=== PATIENT | male | born 1955 | race Caucasian/White ===

== ENCOUNTER 2018-02-23 13:28 | Inpatient (IN) | payer BC, OTHER ==
[~2018-02-23] VITALS: Ht 182.9 cm; Wt 117.9 kg
--- NOTE | 2018-02-23 16:45 | NUR ---
PRE ADMISSION 62 year old male presented at intake office, from [place]. Patients bp: 146/96 P: 117 t: 98.2, r: 22 o2 sat: 95% room air. Patient denies any food or drug allergies. Reports he does not have a primary care physician. Patient reports substance use/history of: etoh. reports has been consuming alcohol for 45 years, most recently reports has been consuming 1/2 gallon of vodka on a daily basis for 6 or 7 months. reports has been to 20+ treatment centers, most recently was at [facility] in [place] for 4 days, patient unable to recall exact dates, but reports he was discharged four days ago. reports that as soon as he arrived at his house, he began drinking. Patient reports he last consumed approximately half a gallon of vodka prior to coming to admission including 6 vodka drink he had on the plane at approximately 1300. patient currently appears, flushed, facial redness, sweating profusely, tremulous, irritable, anxious and agitated. has flat affect, poor eye contact, and noted disheveled. Patient brought home medications with him, but reports the last time he took his home medications was one week ago. Reports past medical history of: DM type 2, HTN, sleep apnea, anxiety, depression and bipolar d/o. Patient reports history of seizures, reports he has had a total of 16 seizures due to withdrawal, last seizure was 3 months ago. Reports family history of substance abuse: father at the age of 55 due to alcohol abuse. Patient seen by Dr. teague at intake office.
[2018-02-23 17:02] VITALS: BP 146/96
[2018-02-23] MEDS ORDERED: THIAMINE HCL 200 MG/2 ML VIAL IM ONE (17:15)
[2018-02-23] MEDS ORDERED: ONDANSETRON 4 MG/2 ML VIAL IV PRN (17:15)
[2018-02-23] MEDS ORDERED: ONDANSETRON ODT 4 MG TAB.RAPDIS SL PRN (17:15)
[2018-02-23] MEDS ORDERED: NICOTINE POLACRILEX 4 MG GUM-PK OF TEN BC PRN (17:15)
[2018-02-23] MEDS ORDERED: LORAZEPAM 2 MG/1 ML VIAL IM PRN (17:15)
[2018-02-23] MEDS ORDERED: MAGNESIUM HYDROXIDE 30 ML LIQUID UDC PO PRN (17:15)
[2018-02-23] MEDS ORDERED: LOPERAMIDE HCL 2 MG CAPSULE PO PRN ×2 (17:15)
[2018-02-23] MEDS ORDERED: LORAZEPAM 1 MG TABLET PO PRN (17:15)
[2018-02-23] MEDS ORDERED: ACETAMINOPHEN 325 MG TABLET PO PRN (17:15)
[2018-02-23] MEDS ORDERED: IV NS 1000 ML 1,000 ML IV PRN (17:15)
[2018-02-23] MEDS ORDERED: MIRALAX 17 GM POWD.PACK PO PRN (17:15)
[2018-02-23] MEDS ORDERED: NICOTINE 14 MG/24HR PATCH TD PRN (17:15)
[2018-02-23] MEDS ORDERED: ATOR40TA PO (17:34)
[2018-02-23] MEDS ORDERED: METF500T6 PO (17:34)
[2018-02-23] MEDS ORDERED: CITA40TA11 PO (17:34)
[2018-02-23] MEDS ORDERED: ASPI81TA31 PO (17:34)
[2018-02-23] MEDS ORDERED: LISI-603 PO (17:34)
[2018-02-23] MEDS ORDERED: MIRT15TA7 PO (17:34)
[2018-02-23] MEDS ORDERED: THIA100T70 PO (17:34)
[2018-02-23] MEDS ORDERED: METO25TA6 PO (17:34)
[2018-02-23] MEDS ORDERED: HYDR-3026 PO (17:34)
[2018-02-23] MEDS ORDERED: PANT40TA4 PO (17:34)
[2018-02-23] MEDS ORDERED: LIDO30AD10 TD (17:34)
[2018-02-23 17:47] LABS: *AMPHETAMINE, URINE NEGATIVE (NEGATIVE); *BARBITURATE, URINE NEGATIVE (NEGATIVE); *CANNABINOID, URINE NEGATIVE (NEGATIVE); *COCCAINE, URINE NEGATIVE (NEGATIVE); *OPIATE, URINE NEGATIVE (NEGATIVE); *PHENCYCLIDINE SCREEN,URINE NEGATIVE (NEGATIVE)
[2018-02-23] MEDS: LORAZEPAM 1 MG TABLET PO SCH ×2 (18:07→21:02)
--- NOTE | 2018-02-23 18:55 | NUR ---
ADMISSION Patient arrived on the unit 1700 patient noted with unsteady gait, brought on unit on a wheelchair. Patients body search completed by male PRODUCT ARCHITECT, no contraband was found. Patients body search completed by male nurse, skin noted intact, no breakdown or bruising noted. Patient was noted with bilateral hand 2+ pitting edema and bilateral foot 2+ pitting edema, per patient his hands and feet swell when he is drinking alcohol. Patient is 6 feet tall, and weighs 260 lbs. Patient was oriented to room and to unit, education regarding call light use was provided with good verbal understanding. Patient reports NKA. Patient reports he does not have a primary care physician. Patient reports substance use of: etoh. 1.Etoh- has been consuming alcohol for 45 years, recently has been consuming gallon of vodka on a daily basis for months patient unable to recall exact amount of months. Patient reports his last drink was all night long, consuming gallon of vodka. Patient reports that upon coming here on the plane consumed 6 vodka drinks, with last drink at approximately 1300. Patient reports he has been to 20+ treatment centers, unable to recall the names of them, but most recently was at [facility] in [place] last week, reports he was there for four days, upon discharging from there to home, he relapsed and continued drinking. Patient reports past medical history of: DM type 2, HTN, sleep apnea, anxiety, depression, bipolar d/o, CAD, dyslipidemia and GERD. Patient reports surgical history of: coronary artery bypass graft, and colon polypectomy. Patient is unable to recall when he was diagnosed or when surgical procedures were done. Patient reports history of 16 seizures all due to withdrawal, last seizure was 3 months ago due to withdrawal. Patient reports family history of substance abuse: father, reports from alcohol abuse at the age of 55. Patient reports he lives alone, in [place]. 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 Patient also reported that 3 months ago, he attempted to commit suicide by taking over the counter sleeping aids, was found by a neighbor and taken to hospital, currently patient is denying any suicidal or homicidal ideations, reports I just want to get well, I dont want to that way patient reports he does not know how to cope with negative emotions, reports that 12 years ago his partner committed suicide and since then he is unable to cope and cannot stop drinking. Reports his longest period of sobriety was for 18 months, 5-6 years ago, but then relapsed. Patient reports that he wants his life back, and he no longer wants to live this way, reports he wants to live and not . Patient respirations are even and unlabored, lungs clear upon auscultation, patients abdomen is distended and soft, bowel sounds heard in all quadrants. Patient noted disheveled, poor eye contact, flat affect, depressed and anxious mood. Noted irritable, and agitated. Patient presented with: tremors, sweats, anxiety, agitation, fidgety, restlessness, reports moderate itchiness to bilateral arms, reports he is currently hearing his name being called (auditory hallucinations), moderate headache, disoriented to place and time, admitting ciwa score of: 33, Dr. Reynoso aware. Patient reports that when he is detoxing he also beings to see mice in the room currently not experiencing any visual hallucination. Patient placed with 1: 1 sitter for safety precautions. Seizure precautions in place and observed at all time. Safety measures in place. Call light with in reach. Was administered scheduled 2mg Ativan PO as ordered and Vitamin b1 injection, well tolerated, will continue to monitor closely. Safety measures are in place. Endorsed patient to night worker nurse, all pertinent information was discussed. Patient scheduled to begin IVF as ordered, endorsed to night worker nurse.
[2018-02-23 20:00] VITALS: BP 141/77
--- NOTE | 2018-02-23 20:00 | NUR ---
Start of Shift Pt asleep on bed, arousable AAOx3 and noted with intermittent awareness of the place where he is at. Pt re-oriented to place. Pt noted to be anxious, appears flushed and with sweating on the forehead. With non-pitting edema on BUE and BLE. Pt noted to be depressed and melancholic. Pt appears disheveld and unkempt. Pt also noted to have dark undereye circles. With unsteady gait, on 1:1 for safety. With IV access on the left AC #22, patent and intact, saline flush done, no resistance noted. With IVF infusing well. Fall, seizure, universal and safety prec in place. Call light within reach. Latest CIWA=20. Will continue to monitor.
[2018-02-23] MEDS: METOPROLOL 25 MG PO SCH (21:05)
[2018-02-23] MEDS: MIRTAZAPINE 15 MG TABLET PO SCH (21:14)
[2018-02-23] MEDS: MAG HYDROX/AL HYDROX/SIMETH 30 ML LIQUID UDC PO PRN (21:14)
--- NOTE | 2018-02-23 21:15 | NUR ---
RN note PRN Maalox Pt c/o heartburn. Administered Maalox 30 ml PRN as ordered. Will reassess.
[2018-02-23 21:28] LABS: BASOPHILS % (AUTO) 0.6 % (0.0-2.0); EOSINOPHILS # (AUTO) 0.2 K/uL (0.0-0.7); EOSINOPHILS % (AUTO) 3.2 % (0.0-7.0); HEMATOCRIT 38.7 % (36.7-47.1); HEMOGLOBIN 13.5 g/dL (12.5-16.3); LYMPHOCYTES # (AUTO) 2.9 K/uL (20.0-40.0); LYMPHOCYTES % (AUTO) 39.4 % (20.5-51.5); MEAN CORPUSCULAR HEMOGLOBIN 32.6 uug (23.8-33.4); MEAN CORPUSCULAR HGB CONC 35 g/dL (32.5-36.3); MEAN CORPUSCULAR VOLUME 93.4 fL (73.0-96.2); MONOCYTES # (AUTO) 0.7 K/uL (2.0-10.0); MONOCYTES % (AUTO) 10.1 % (0.0-11.0); NEUTROPHILS # (AUTO) 3.4 K/uL (1.8-8.9); NEUTROPHILS % (AUTO) 46.7 % (38.5-71.5); PLATELET COUNT (AUTO) 249 K/uL (152-348); RED BLOOD CELL COUNT(AUTO) 4.14 MIL/uL (4.06-5.63); WHITE BLOOD COUNT (AUTO) 7.3 K/uL (3.6-10.2)
[2018-02-23 21:43] LABS: BILIRUBIN,TOTAL 0.3 mg/dL (0.2-1.0); MAGNESIUM 1.8 mg/dL (1.8-2.4); POTASSIUM 3.7 mmol/L (3.5-5.1); TOTAL PROTEIN, SERUM 6.6 g/dL (6.4-8.2)
--- NOTE | 2018-02-23 22:15 | NUR ---
RN note reassess Pt verbalized feeling relief from heartburn.
[2018-02-23 22:23] LABS: THYROID STIMULATING HORMONE 1.4 mIU/mL (0.358-3.740)
--- NOTE | 2018-02-23 22:30 | NUR ---
Reassessment of pain Reassessment deferred due to the px is asleep. We'll continue to monitor.
[2018-02-24] VITALS: BP 138/74
[2018-02-24 04:00] VITALS: BP 152/86
[2018-02-24] MEDS: LORAZEPAM 1 MG TABLET PO PRN ×2 (04:11→12:24)
--- NOTE | 2018-02-24 04:11 | NUR ---
RN note PRN Ativan Pt with CIWA=16, increasing anxiety, tremors, sweating and flushed skin. Administered Ativan 2 mg PO PRN as ordered. Will reassess.
--- NOTE | 2018-02-24 05:10 | NUR ---
RN note reassess Pt asleep on bed but arousable, with no facial grimacing noted. CIWA reassessed=12. Patient verbalized that anxiety has decreased.
--- NOTE | 2018-02-24 07:18 | NUR ---
End of Shift Patient continues to appear flushed and with sweating. Patient noted to be anxious. WIth IVF infusing well. On 1:1 as patient continued to ambulate with assistance, with unsteady gait. Patient appears disheveled, unkempt and odorous. Explained to patient the importance of taking a shower to maintain a good hygiene. Fall, seizure, universal and safety prec in place. Call light within reach. Latest CIWA=12, slept for 7 hours. Endorsed to AM shift nurse for continuity of care.
--- NOTE | 2018-02-24 07:30 | NUR ---
Start of shift Pt is 62 y/o male admitted to [facility] for medically supervised withdraw from ETOH. Pt on 5 day Ativan taper (day 2). A&O X4, resp even and unlabored. Presents with anxiety, flat affect and depressed mood. Pt has gross tremors, sweats, flushed face. C/O stomach cramps. Denies c/o pain, N/V/D. Last CIWA 12 at 1999. IV left AC, NS at 15 cc/hr. IV site patent. Pt 1:1 for safety and unsteady gait. Pt slept 7 hours. Encouraged Pt to attend group therapies to maintain sobriety and prevent relapse. NKA, FULL CODE. All safety measure in place; Fall and Seizure precautions. Bed lowest/locked position, side rails up X2, call light within reach. Will continue to monitor s/s of withdrawal.
[2018-02-24 08:00] VITALS: BP 158/87
[2018-02-24] MEDS: MULTIVITAMINS,THERAPEUTIC TABLET PO SCH (08:17)
[2018-02-24] MEDS: FOLIC ACID 1 MG TABLET PO SCH (08:17)
[2018-02-24] MEDS: THIAMINE HCL 100 MG TABLET PO SCH (08:17)
[2018-02-24] MEDS: IBUPROFEN 400 MG TABLET PO PRN ×2 (08:18→12:50)
[2018-02-24] MEDS: CITALOPRAM 20 MG TABLET PO SCH (08:18)
[2018-02-24] MEDS: ASPIRIN 81MG PO SCH (08:18)
[2018-02-24] MEDS: LORAZEPAM 1 MG TABLET PO SCH ×3 (08:18→20:09)
[2018-02-24] MEDS: METOPROLOL 25 MG PO SCH ×2 (08:18→20:10)
[2018-02-24] MEDS: LIDOCAINE PATCH 5% TOP SCH (08:19)
--- NOTE | 2018-02-24 08:26 | NUR ---
PRN Ibuprofen 400 mg POI for headache #4/10
[2018-02-24] MEDS ORDERED: DEXTROSE 50% 50 ML DISP.SYRIN IV PRN (08:45)
[2018-02-24] MEDS ORDERED: TUBERCULIN,PURIF.PROT.DERIV. 5 TU/0.1 ML TEST ID ONE (09:00)
--- NOTE | 2018-02-24 09:26 | NUR ---
REASSESS IBUPROFEN- PT REPORTS HEAD ACHE REMAINS AT #4/10. MEDICATION NOT EFFECTIVE.
[2018-02-24] MEDS: GABAPENTIN 300 MG CAPSULE PO SCH ×2 (09:33→20:09)
[2018-02-24 12:00] VITALS: BP_SYST 156; BP_SYST 160; BP_DIAS 89; BP_DIAS 97
[2018-02-24] MEDS: BLOOD SUGAR DIAGNOSTIC 1 EACH STRIP VI SCH ×3 (12:13→21:09)
[2018-02-24] MEDS: INSULIN REGULAR, HUMAN 300 UNIT/3 ML VIAL SQ PRN ×3 (12:20→21:13)
--- NOTE | 2018-02-24 12:25 | NUR ---
PRN ATIVAN 2 MG PO FOR CIWA 20.
[2018-02-24] MEDS: hydrALAZINE HCL 50 MG TABLET PO PRN (12:51)
--- NOTE | 2018-02-24 12:51 | NUR ---
PRN HYDRALAZINE 50 MG PO FOR BP 160/97 PRN IBUPROFEN 400 MG PO FOR BACK PAIN #8/10 PRN TYLENOL 650 MG PO FOR BACK PAIN #8/10
[2018-02-24] MEDS: DICYCLOMINE HCL 20 MG TABLET PO PRN ×2 (13:17→20:09)
--- NOTE | 2018-02-24 13:19 | NUR ---
PRN BENTYL 20 MG PO FOR STOMACH CRAMPS
--- NOTE | 2018-02-24 13:30 | NUR ---
[facility], PT REPORTS HE STILL FEELS ANXIOUS, IRRITABLE AND NOT MUCH DIFFERENT. GROSS TREMORS AND SWEATS PRESENT.
--- NOTE | 2018-02-24 13:51 | NUR ---
REASSESS HYDRALAZINE- BP REMAINS ELEVATED AT 150/92
--- NOTE | 2018-02-24 13:51 | NUR ---
REASSESS IBUPROFEN AND TYLENOL- PT REPORTS BACK PAIN REMAINS UNCHANGED, #7-/. PT HAS CHRONIC BACK PAIN R/T INJURY.
--- NOTE | 2018-02-24 14:19 | NUR ---
REASSESS BENTYL- PT C/O STOMACH CRAMPS, MEDICATION NOT EFFECTIVE.
[2018-02-24 16:00] VITALS: BP 135/99
--- NOTE | 2018-02-24 18:32 | NUR ---
End of shift Pt is 62 y/o male admitted to [facility] for medically supervised withdraw from ETOH. Pt on 5 day Ativan taper (day 2) and tolerating well. Presents with anxiety, flat affect and depressed mood. Pt has gross tremors, sweats, flushed face. PRN given today; Motrin, Ativan, Tylenol, Hydralazine, Bentyl. C/O stomach cramps not resolved by PRN. Pt has HTN, and elevated BP today minimally affected by PRN Hydralazine and scheduled Rx. Accu checks performed AC. Blood sugar elevated and treated with slide scale as ordered. At 1600 last CIWA 18. Saline lock left AC, patent. Encouraged Pt to attend group therapies to maintain sobriety and prevent relapse. Pt attended all group therapy meetings today. PO fluids 1900 ml, IV fluids 400 ml, voids x 2, no BM. NKA, FULL CODE. All safety measure in place; Fall and Seizure precautions. Bed lowest/locked position, side rails up X2, call light within reach. Will continue to monitor s/s of withdrawal. Endorsed to PM shift.
[2018-02-24 20:00] VITALS: BP 136/87
--- NOTE | 2018-02-24 20:00 | NUR ---
START OF SHIFT NOTE RECEIVED REPORT FROM DAY SHIFT NURSE. PATIENT IS A 62 YEAR OLD MALE ADMITTED FOR ETOH WITHDRAWAL. PATIENT IS ON 5 DAY ATIVAN TAPER. PATIENT WITH HISTORY OF DIABETES. LAST BLOOD SUGAR 168, 3 UNITS OF REGULAR INSULIN WAS GIVEN. PATIENT WAS ON 1:1 FOR UNSTEADY GAIT AND ON IV HYDRATION, DISCONTINUED TODAY. PATIENT WITH STEADY GAIT. PATIENT WAS GIVEN PRN ATIVAN, TYLENOL, MOTRIN X 2 AND BENTYL . PATIENT WITH HISTORY OF HYPERTENSION, BP ELEVATED, PRN HYDRALAZINE GIVEN. LAST CIWA 16. RECEIVED PATIENT IN THE ROOM. PATIENT ALERT AND ORIENTED X 4. PATIENT WITH FLAT AFFECT, FLUSHED, DISHEVELED, ODOROUS, ANXIOUS, HOT/COLD SWEATS, SENSITIVE TO LIGHT AND SOUNDS, ABDOMINAL CRAMPING, BILATERAL HAND TREMORS, PINS AND NEEDLES SENSATIONS AND HE STATES HE FEELS LIKE SOMETHING IS CRAWLING ON HIS SKIN. ENCOURAGE FLUIDS. SAFETY MEASURES IN PLACE. CALL LIGHT IN REACH. WILL CONTINUE TO MONITOR.
[2018-02-24] MEDS: MIRTAZAPINE 15 MG TABLET PO SCH (20:09)
--- NOTE | 2018-02-24 20:09 | NUR ---
PRN BENTYL ADMINISTRATION PATIENT C/O ABDOMINAL CRAMPING . WILL MONITOR FOR EFFECTIVENESS
--- NOTE | 2018-02-24 21:09 | NUR ---
PRN BENTYL ADMINISTRATION PATIENT STATES BENTYL HELPFUL AND EFFECTIVE.
[2018-02-25] VITALS (7 sets, daily range): BP systolic 122–172; BP diastolic 90–101
--- NOTE | 2018-02-25 | NUR ---
CIWA DEFERRED PATIENT SLEEPING . RESPIRATION EVEN AND UNLABORED. SAFETY MEASURES IN PLACE. CALL LIGHT IN REACH. WILL CONTINUE TO MONITOR
[2018-02-25] MEDS: diphenhydrAMINE 50 MG CAPSULE PO PRN (01:07)
[2018-02-25] MEDS: MAG HYDROX/AL HYDROX/SIMETH 30 ML LIQUID UDC PO PRN (01:07)
--- NOTE | 2018-02-25 01:07 | NUR ---
PRN MAALOX AND BENADRYL ADMINISTRATION PATIENT C/O HEARTBURN AND REQUESTS FOR SLEEP AID. WILL MONITOR FOR EFFECTIVENESS
--- NOTE | 2018-02-25 02:07 | NUR ---
PRN MAALOX AND BENADRYL RE-ASSESSMENT PATIENT SLEEPING . RESPIRATION EVEN AND UNLABORED. WILL CONTINUE TO MONITOR
[2018-02-25] MEDS: LORAZEPAM 1 MG TABLET PO PRN (03:55)
[2018-02-25] MEDS: hydrALAZINE HCL 50 MG TABLET PO PRN (03:56)
--- NOTE | 2018-02-25 03:56 | NUR ---
WI ATIVAN AND HYDRALAZINE ADMINISTRATION PATIENT ANXIOUS, RESTLESS, TREMULOUS AND SWEATING. CIWA 13 UPON ASSESSMENT. BP-172/101 HR-84. WILL MONITOR FOR EFFECTIVENESS
--- NOTE | 2018-02-25 04:56 | NUR ---
PRN ATIVAN AND HYDRALAZINE ADMINISTRATION PATIENT IN BED, READING A BOOK. PATIENT STATES THAT ATIVAN HELPFUL AND EFFECTIVE BP-147/91 HR-96. CIWA 6 UPON ASSESSMENT
--- NOTE | 2018-02-25 07:11 | NUR ---
END OF SHIFT NOTE MONITORED PATIENT THROUGHOUT SHIFT. PATIENT SLEPT 7 HOURS. FLUID INTAKE 500 ML. VOIDED X 1. NO BM. SCHEDULED MEDICATION AND TAPER GIVEN ORDERED, TOLERATED WELL AND NO ADVERSE REACTION. PATIENT'S BLOOD SUGAR 158 AT 2000, 2 UNITS OF REGULAR INSULIN GIVEN. PATIENT WAS GIVEN PRN BENTYL FOR ABDOMINLA CRAMPING. AT 0107, PATIENT C/O HEARTBURN AND REQUESTS FOR SLEEP AID DUE TO UNABLE TO GO BACK TO SLEEP. PRN BENADRYL AND MAALOX GIVEN. AT 0356, PATIENT WAS ANXIOUS,RESTLESS , TREMULOUS AND SWEATING. CIWA WAS 13 AND BP-172/101 . PRN ATIVAN AND HYDRALAZINE GIVEN, EFFECTIVE. CIWA WENT DOWN TO 10 AND BP-147/91. ENCOURAGE FLUIDS. SAFETY MEASURES IN PLACE. CALL LIGHT IN REACH. WILL CONTINUE TO MONITOR. LAST CIWA 6.
--- NOTE | 2018-02-25 07:30 | NUR ---
START OF SHIFT PATIENT IS A 63 YR OLD MALE ADMITTED TO [facility] ON 02/23/18 FOR A MEDICALLY SUPERVISED WITHDRAWAL FROM ALCOHOL. HE IS ON A 5 DAY ATIVAN TAPER AND THIS IS DAY 2. HE IS A TYPE 2 DIABETIC WITH AC/HS ACCU CHECKS, 0730 CHECK WAS 180 REQUIRING 3 U INSULIN. PATIENT HAS SEVERE BILATERAL HAND TREMORS AND 2+ EDEMA ON BILATERAL HANDS AND FEET. HE SLEPT FOR 7 HOURS INTERMITTENTLY LAST NIGHT, PRN MEDS GIVEN ON PM SHIFT: BENTYL, MAALOX, BENADRYL, HYDRALAZINE AND ATIVAN 2MG PO. LAST CIWA 10, CONTINUE TO FOLLOW MD PLAN OF CARE AND OFFER SUPPORT NEEDED.
[2018-02-25] MEDS: BLOOD SUGAR DIAGNOSTIC 1 EACH STRIP VI SCH ×4 (07:35→21:29)
[2018-02-25] MEDS: ASPIRIN 81MG PO SCH (08:19)
[2018-02-25] MEDS: LIDOCAINE PATCH 5% TOP SCH (08:20)
[2018-02-25] MEDS: MULTIVITAMINS,THERAPEUTIC TABLET PO SCH (08:20)
[2018-02-25] MEDS: GABAPENTIN 300 MG CAPSULE PO SCH ×3 (08:20→21:24)
[2018-02-25] MEDS: FOLIC ACID 1 MG TABLET PO SCH (08:20)
[2018-02-25] MEDS: METOPROLOL 25 MG PO SCH (08:20)
[2018-02-25] MEDS: THIAMINE HCL 100 MG TABLET PO SCH (08:20)
[2018-02-25] MEDS: CITALOPRAM 20 MG TABLET PO SCH (08:20)
[2018-02-25] MEDS: DICYCLOMINE HCL 20 MG TABLET PO PRN (08:20)
--- NOTE | 2018-02-25 08:20 | NUR ---
PRN BENTYL/MIRALAX BENTYL 20MG PO AND MIRALAX 17G GIVEN FOR COMPLAINTS OF STOMACH DISCOMFORT/ CONSTIPATION WILL REASSESS
[2018-02-25] MEDS: INSULIN REGULAR, HUMAN 300 UNIT/3 ML VIAL SQ PRN ×3 (08:28→16:40)
[2018-02-25] MEDS ORDERED: LORAZEPAM 1 MG TABLET PO SCH ×2 (09:00→21:00)
--- NOTE | 2018-02-25 09:20 | NUR ---
PRN REASSESS PATIENT STATES HIS STOMACH SYMPTOMS COME AND GO AND AT THE MOMENT HE FEELS OK, WILL CONT TO MONITOR
[2018-02-25] MEDS: LORAZEPAM 1 MG TABLET PO SCH ×2 (13:14→17:29)
[2018-02-25 14:06] LABS: HEPATITIS B SURFACE AG Negative (Negative)
--- NOTE | 2018-02-25 14:51 | NUR ---
Attempted to do biopsychosocial assessment twice but both times the client has been sleeping heavily. Will continue checking to see when he will be awake and able to complete the assessment.
--- NOTE | 2018-02-25 15:31 | NUR ---
Client was prompted to attend group counseling sessions.
[2018-02-25] MEDS ORDERED: AMLODIPINE 5 MG TABLET PO SCH (17:00)
[2018-02-25] MEDS ORDERED: METOPROLOL TARTRATE 25 MG TABLET PO ONE (17:00)
[2018-02-25] MEDS ORDERED: NAPROXEN 500 MG TABLET PO PRN (18:30)
--- NOTE | 2018-02-25 18:59 | NUR ---
END OF SHIFT : PATIENT IS A 62 YR OLD MALE WHO WAS ADMITTED TO [facility] ON 02/23/18 FOR A MEDICALLY SUPERVISED WITHDRAWAL FROM ALCOHOL ( VODKA). HE IS ON A 5 DAY ATIVAN TAPER AND THIS IS DAY 2. HE HAS A HISTORY OF SEIZURES AND LAST ONE WAS 3 MONTHS AGO WITHDRAWAL RELATED. HE PRESENTS WITH BILATERAL EDEMA ON HANDS AND FEET WHICH HE STATES HAPPENS WHEN HE DRINKS ALCOHOL, HE HAS HYPERTENSION AND A HISTORY OF A CORONARY ARTERY BYPASS GRAFT IN 2016. HE HAS DM TYPE 2 , AC/HS ACCU CHECKS TO BE PERFORMED WITH SLIDING SCALE INSULIN, BLOOD SUGAR TODAY 180/155/ ALL REQUIRING INSULIN. HE PRESENT WITH WITHDRAWAL SYMPTOMS THAT INCLUDE DIAPHORESIS, SEVERE BILATERAL HAND TREMORS, RESTLESSNESS AND FATIGUE. PRN MEDICATIONS GIVEN ON THIS SHIFT : BENTYL AND MIRALAX. HE HAS ATTENDED GROUPS TODAY AND IS INTERACTING WITH HIS PEERS. HE HAS A SALINE LOCK IN LEFT UPPER ARM, FLUSHED AND PATENT. LAST CIWA 16@ 1600. HE HAD A FLUID INTAKE OF 4482ML, 4 VOIDS AND 1 BM. CONTINUE TO FOLLOW MD PLAN OF CARE. ENDORSED TO IT ACCOUNT MANAGER.
--- NOTE | 2018-02-25 19:30 | NUR ---
Start of Shift Note Received 62 y/o male px, admitted for medically supervised withdrawal from ETOH. Px was placed on 5 day Ativan taper. Px is tolerating it. Last reported CIWA 16 by AM shift nurse. Px has DM type 2. During the rounds at 1930, px is awake on bed in fowlers position. Px appears drowsy, disheveled and pretty anxious. Speech is soft. Both hands and feet are edematous. Px has good eye contact. Px stated My anxiety is 10/10. My body aches and I have H/A, they are 8/10. Bilateral hand tremors are noted. Bed on lowest position, side rails up 2x and call light within reach. Well continue to monitor.
[2018-02-25] MEDS ORDERED: METOPROLOL TARTRATE 25 MG TABLET PO SCH ×2 (21:00)
--- NOTE | 2018-02-25 21:00 | NUR ---
BG BG= 129 mg/dl. No Humulin R injection given per sliding scale.
[2018-02-25] MEDS: MIRTAZAPINE 15 MG TABLET PO SCH (21:24)
--- NOTE | 2018-02-25 21:24 | NUR ---
PRN Naproxen Px complained of LBP of 8/10 and mild H/A. Naproxen 500 mg/tab, 1 tab given PO. Px refused Tylenol tab. We'll continue to monitor.
[2018-02-25] MEDS: METOPROLOL TARTRATE 50 MG TABLET PO SCH (21:25)
[2018-02-25] MEDS: ATORVASTATIN 40 MG TABLET PO SCH (21:25)
[2018-02-26] VITALS (7 sets, daily range): BP systolic 125–152; BP diastolic 73–103
--- NOTE | 2018-02-26 01:25 | NUR ---
Bed sheets changed Px had wet accident on bed. Some stool stain noted also on the blanket. Bed sheets changed. Soiled clothes put inside a clear plastic. Px went smoking in the patio.
--- NOTE | 2018-02-26 02:21 | NUR ---
MD Communication: Pt woke up and reported 10/10 severe lower back pain. Pt stated it might be "related to a fall he had weeks ago". MD made aware with new order for 30mg Toradol IM ONE TIME for pain and to repeat x1 after 6 hours if pain continues. Order noted and will be given by primary nurse. Will continue to monitor.
--- NOTE | 2018-02-26 02:26 | NUR ---
PRN medications Px complained of LBP of 06/13. 1x dose Toradol 30 mg given IM on left deltoids. Px also complained of insomnia and ask for Valium. Px was given Benadryl 50 mg/cap, 1 cap PO as PRN med for insomnia. CHIDI 20. Dr. Reynoso notified.
[2018-02-26] MEDS ORDERED: KETOROLAC TROMETHAMINE 30 MG INJ IM ONE ×2 (02:30→08:45)
[2018-02-26] MEDS: diphenhydrAMINE 50 MG CAPSULE PO PRN (02:36)
--- NOTE | 2018-02-26 03:06 | NUR ---
Reassessment of Pain Reassessment deferred due to the px is asleep. We'll continue to monitor.
--- NOTE | 2018-02-26 04:00 | NUR ---
Px woke up Px stated "My anxiety is still high. My pain is 6/10." BP= 150/100 and IN= 82.
[2018-02-26] MEDS ORDERED: HYDROXYZINE PAMOATE 25 MG CAPSULE PO ONE (04:15)
[2018-02-26] MEDS: hydrALAZINE HCL 50 MG TABLET PO PRN (04:32)
--- NOTE | 2018-02-26 04:32 | NUR ---
PRN medications Px given Apresoline 50 mg/tab, 1 tab PO for BP of 150/100 and Vistaril 25 mg/cap, 2 caps PO as 1x dose for anxiety. We'll continue to monitor.
--- NOTE | 2018-02-26 07:00 | NUR ---
End of Shift Note During the shift, px had intermittent sleep the whole night. At 2100, BG= 129 mg/dl, No insulin given per protocol. At 0130, px had wet accident with stool stain on the beddings. Bed sheets changed. At 2123, px received Naproxen 500 mg PO for pain. It was not effective. At 235, px received Benadryl 50 mg PO for insomnia and Toradol 30 mg IM for LBP of 10/10. Pain was reduced to 6/10. At 431, Px received Vistaril 50 mg PO as 1x dose for anxiety and Apresoline 50 mg PO as PRN for KF=556/100. Pxs oral intake is 1 L, voided 2x, BM 1x. Px slept for 4 hours intermittently. BP= 162/94 at 0600. At 0630, px is asleep on bed in fowlers position. Last CIWA 18. Bed on lowest position, side rails up 2x and call light within reach. Well continue to monitor. Px endorsed to AM shift nurse.
--- NOTE | 2018-02-26 07:14 | NUR ---
START OF SHIFT: PATIENT IS A 62 YR OLD MALE ADMITTED TO [facility] ON 02/23/18 FOR A MEDICALLY SUPERVISED WITHDRAWAL FROM ALCOHOL. HE IS AWAKE STANDING IN THE HALLWAY AT THIS TIME, HE HAD A TOUGH NIGHT HE SAYS , LOTS OF PAIN AND INABILITY TO SLEEP. PRN MEDS GIVEN ON PM SHIFT ; NAPROXEN, TORADOL, BENADRYL, VISTARIL AND LOPRESSOR. BILATERAL HAND AND FEET STILL WITH 2+ EDEMA. HE SLEPT FOR 4 HOURS INTERMITTENTLY AND LAST CIWA 18 @ 0600. ACCU-CHECK TO BE DONE @ 0730 FOR DM2. CONTINUE TO FOLLOW MD PLAN OF CARE AND OFFER SUPPORT NEEDED.
[2018-02-26] MEDS: BLOOD SUGAR DIAGNOSTIC 1 EACH STRIP VI SCH ×4 (07:29→21:51)
[2018-02-26] MEDS: INSULIN REGULAR, HUMAN 300 UNIT/3 ML VIAL SQ PRN ×4 (07:30→21:55)
[2018-02-26] MEDS: LIDOCAINE PATCH 5% TOP SCH (08:22)
[2018-02-26] MEDS: ASPIRIN 81MG PO SCH (08:22)
[2018-02-26] MEDS: THIAMINE HCL 100 MG TABLET PO SCH (08:23)
[2018-02-26] MEDS: METOPROLOL TARTRATE 50 MG TABLET PO SCH ×2 (08:23→21:48)
[2018-02-26] MEDS: GABAPENTIN 300 MG CAPSULE PO SCH ×3 (08:23→21:47)
[2018-02-26] MEDS: FOLIC ACID 1 MG TABLET PO SCH (08:23)
[2018-02-26] MEDS: MULTIVITAMINS,THERAPEUTIC TABLET PO SCH (08:23)
[2018-02-26] MEDS: CITALOPRAM 20 MG TABLET PO SCH (08:27)
[2018-02-26] MEDS ORDERED: LORAZEPAM 1 MG TABLET PO SCH ×2 (09:00→21:00)
[2018-02-26] MEDS ORDERED: AMLODIPINE 5 MG TABLET PO SCH (09:00)
--- NOTE | 2018-02-26 09:10 | NUR ---
PRN TORADOL TORADOL 30MG IM GIVEN FOR BACK PAIN 04/13, GIVEN IN RIGHT DELTOID, WILL MONITOR AND REASSESS
[2018-02-26] MEDS ORDERED: LORAZEPAM 1 MG TABLET PO PRN (09:30)
[2018-02-26] MEDS ORDERED: CLONIDINE HCL 0.1 MG TABLET PO ONE (09:30)
--- NOTE | 2018-02-26 10:10 | NUR ---
PRN REASSESS TORADOL 30MG IM EFFECTIVE, PT STATES BACK PAIN IS NOW 3/10, WILL CONTINUE TO MONITOR
[2018-02-26] MEDS: LORAZEPAM 1 MG TABLET PO SCH ×2 (13:13→16:36)
[2018-02-26] MEDS ORDERED: AMLODIPINE 5 MG TABLET PO ONE (15:00)
[2018-02-26] MEDS: KETOROLAC TROMETHAMINE 30 MG INJ IM PRN ×2 (15:18→21:56)
--- NOTE | 2018-02-26 15:20 | NUR ---
PRN TORADOL TORADOL 30MG IM GIVEN IN RIGHT DELTOID FOR REPORTS OF LOWER BACK PAIN 04/13 WILL MONITOR AND REASSESS
--- NOTE | 2018-02-26 16:20 | NUR ---
PRN TORADOL REASSESS PATIENT STATES PAIN LEVEL IS NOW 3/10, TORADOL 30 MG IM EFFECTIVE, CONTINUE TO MONITOR
--- NOTE | 2018-02-26 18:53 | NUR ---
END OF SHIFT : PATIENT IS A 62 YR OLD MALE WHO WAS ADMITTED TO [facility] ON 02/23 18 FOR A MEDICALLY SUPERVISED WITHDRAWAL FROM ALCOHOL ( VODKA) HE CONTINUE ON A 5 DAY ATIVAN TAPER AND THIS IS DAY 3. HE CONTINUES WITH BILATERAL HAND AND FEET 2+ NON PITTING EDEMA, AND SEVERE BILATERAL HAND TREMORS, HE IS ANXIOUS AND HAS LOWER BACK PAIN, LETHARGY AND INCREASED BP DUE TO HYPERTENSION. HE HAS DM TYPE 2 AND HAS AC/HS ACCU-CHECKS WITH SLIDING SCALE INSULIN, TODAYS BLOOD SUGARS HAVE BEEN 235/226/249 ALL REQUIRING SQ INSULIN. PRN MEDS GIVEN ON THIS SHIFT : TORADOL 30MG IM X2 FOR LOWER BACK PAIN WHICH WAS EFFECTIVE.HE HAD A FLUID INTAKE OF 3000ML,4 VOIDS AND 3 BM. LAST CIWA WAS 15 @ 1600. HE HAS GONE TO GROUP TODAY AND IS INTERACTING WITH HIS PEERS. CONTINUE TO FOLLOW MD PLAN OF CARE AND OFFER SUPPORT NEEDED. ENDORSED TO DRUM PLATER.
--- NOTE | 2018-02-26 20:00 | NUR ---
Start of Shift Patient in room, AAOx4 and noted to be anxious. Patient verbalized, I dont feel good, my back pain is getting worse again. Pain level=6/10. With PRN Toradol for which patient requested to be administered at the same time with night meds. Pt noted to have gross tremors, is unkempt and melancholic. Pt observed to be easily startled and irritated. Fall, universal, seizure and safety prec in place. Call light within reach. Latest CIWA=14. Will continue to monitor.
[2018-02-26] MEDS: MIRTAZAPINE 15 MG TABLET PO SCH (21:47)
[2018-02-26] MEDS: ATORVASTATIN 40 MG TABLET PO SCH (21:48)
--- NOTE | 2018-02-26 21:57 | NUR ---
RN note PRN Toradol Pt c/o back pain=8. Noted with facial grimacing and moaning upon movement. Administered Toradol 30 mg IM PRN as ordered. Will reassess.
--- NOTE | 2018-02-26 22:58 | NUR ---
RN note reassess Pt verbalized pain level decreased to 4/10.
[2018-02-27] VITALS: BP 142/91
[2018-02-27] MEDS: LORAZEPAM 1 MG TABLET PO PRN ×2 (00:13→05:36)
--- NOTE | 2018-02-27 00:14 | NUR ---
RN note PRN Ativan Patient c/o feeling anxious and gets easily agitated. CIWA=16. FJ=980/91. Administered Ativan 2 mg PO PRN as ordered. Will reassess.
--- NOTE | 2018-02-27 01:15 | NUR ---
RN note reassess Pt verbalized decreased anxiety. CIWA=12.
[2018-02-27 04:00] VITALS: BP 138/86
[2018-02-27] MEDS: KETOROLAC TROMETHAMINE 30 MG INJ IM PRN ×3 (05:37→21:29)
--- NOTE | 2018-02-27 05:37 | NUR ---
RN note PRN Ativan Patient c/o feeling anxious and gets easily agitated. CIWA=15. Administered Ativan 2 mg PO PRN as ordered. Will reassess.
--- NOTE | 2018-02-27 05:37 | NUR ---
RN note PRN Toradol Pt c/o back pain=05/14. Noted with facial grimacing and moaning upon movement. Administered Toradol 30 mg IM PRN as ordered. Will reassess.
--- NOTE | 2018-02-27 07:10 | NUR ---
End of Shift Patient asleep on bed but arousable. Patient continues to have back pain, alleviated by Toradol IM PRN as ordered. Pt also continues to have gross tremors, is unkempt, odorous and in depressed mood. Pt still flushed skin, with edema +2 on both hands and feet. Fall, universal, seizure and safety prec in place. Call light within reach. Latest CIWA=13, slept for 5 hours. Endorsed to AM shift nurse for continuity of care.
--- NOTE | 2018-02-27 07:17 | NUR ---
START OF SHIFT: PATIENT IS A 62 YR OLD MALE WHO WAS ADMITTED TO [facility] ON 02/23/18 FOR A MEDICALLY SUPERVISED WITHDRAWAL FROM ALCOHOL ( VODKA). HE IS ON A 5 DAY ATIVAN TAPER AND THIS IS DAY 4. HE IS IN BED ASLEEP AT THIS TIME, BREATHING EVEN AND UNLABORED, SIDE RAILS UP X2, CALL LIGHT WITHIN REACH. PRN MEDS GIVEN ON PM SHIFT ; ATIVAN 2MG PO X2, TORADOL 30MG IM X2. HE HAS SLEPT FOR 5+ HOURS. LAST CIWA 13. CONTINUE TO FOLLOW MD PLAN OF CARE AND OFFER SUPPORT NEEDED.
[2018-02-27] MEDS: BLOOD SUGAR DIAGNOSTIC 1 EACH STRIP VI SCH ×4 (07:39→21:31)
[2018-02-27] MEDS: INSULIN REGULAR, HUMAN 300 UNIT/3 ML VIAL SQ PRN ×4 (07:41→21:32)
[2018-02-27 08:00] VITALS: BP 111/66
[2018-02-27] MEDS ORDERED: LORAZEPAM 1 MG TABLET PO SCH (09:00)
[2018-02-27] MEDS: AMLODIPINE 10 MG TABLET PO SCH (09:20)
[2018-02-27] MEDS: LORAZEPAM 1 MG TABLET PO SCH ×3 (09:20→21:28)
[2018-02-27] MEDS: GABAPENTIN 300 MG CAPSULE PO SCH ×3 (09:20→21:28)
[2018-02-27] MEDS: FOLIC ACID 1 MG TABLET PO SCH (09:20)
[2018-02-27] MEDS: MULTIVITAMINS,THERAPEUTIC TABLET PO SCH (09:21)
[2018-02-27] MEDS: METOPROLOL TARTRATE 50 MG TABLET PO SCH ×2 (09:21→21:29)
[2018-02-27] MEDS: CITALOPRAM 20 MG TABLET PO SCH (09:21)
[2018-02-27] MEDS: THIAMINE HCL 100 MG TABLET PO SCH (09:21)
[2018-02-27] MEDS: LISINOPRIL 20 MG TABLET PO SCH (09:21)
[2018-02-27] MEDS: ASPIRIN 81 MG TAB.CHEW PO SCH (09:21)
[2018-02-27] MEDS: LIDOCAINE PATCH 5% TOP SCH (09:24)
[2018-02-27 12:00] VITALS: BP 137/89
--- NOTE | 2018-02-27 12:05 | NUR ---
PRN TORADOL TORADOL 30MG IM GIVEN FOR LOWER BACK PAIN 04/13, WILL CONTINUE TO MONITOR AND REASSESS
--- NOTE | 2018-02-27 13:05 | NUR ---
TORADOL PRN REASSESS PATIENT ATE LUNCH AND IS NOW ASLEEP COMFORTABLY IN BED, SIDE RAILS UP , BREATHING EVEN AND UNLABORED. WILL CONTINUE TO MONITOR
[2018-02-27] MEDS ORDERED: GABA-534 PO ×2 (15:11)
[2018-02-27] MEDS ORDERED: DIPH50CA37 PO (15:11)
[2018-02-27] MEDS ORDERED: ASPI81TA31 PO (15:11)
[2018-02-27] MEDS ORDERED: ATOR40TA PO (15:11)
[2018-02-27] MEDS ORDERED: LISI-603 PO (15:11)
[2018-02-27] MEDS ORDERED: METO50TA16 PO (15:11)
[2018-02-27] MEDS ORDERED: NAPR-1009 PO (15:11)
[2018-02-27] MEDS ORDERED: AMLO10TA2 PO (15:11)
--- NOTE | 2018-02-27 15:16 | NUR ---
END OF SHIFT / ENDORSED PATIENT IS A 62 YR OLD MALE WHO WAS ADMITTED TO [facility] ON 02/23/18 FOR A MEDICALLY SUPERVISED WITHDRAWAL FROM ALCOHOL ( VODKA) . HE CONTINUES ON AN ATIVAN TAPER WITH POSITIVE RESULTS IN DECREASING HIS WITHDRAWAL SYMPTOMS, SEVERE BILATERAL HAND TREMORS ARE NOW MILD TO MODERATE, HAND AND FEET EDEMA IS IMPROVING, ANXIETY IS WELL CONTROLLED WITH ATIVAN AND BLOOD PRESSURE IS DECREASING. HE STILL CONTINUES BEING LETHARGIC AT TIMES DUE TO NOT SLEEPING SOUNDLY AT NIGHT RELATED TO SLEEP APNEA. HE CONTINUES TO TAKE PRN TORADOL IM FOR LOWER BACK PAIN WHICH IS EFFECTIVE. PRN MEDS GIVEN ON THIS SHIFT : TORADOL 30MG IM @ 1205. HE HAS DIABETES MELLITUS TYPE 2 AND HAS AC/HS ACCU-CHECKS WITH SLIDING SCALE REGULAR INSULIN. HE HAS ATTENDED GROUPS TODAY AND IS INTERACTING WITH HIS PEERS. LAST CIWA 13 @ 1500. ENDORSED TO NURSE ASSUMING CARE.
--- NOTE | 2018-02-27 15:17 | NUR ---
RECEIVED CARE Received care from primary nurse, all pertinent information discussed.
[2018-02-27 16:00] VITALS: BP 119/90
--- NOTE | 2018-02-27 19:09 | NUR ---
END OF SHIFT NOTE Gave report to night nurse, 62 year old male admitted for ETOH withdrawal. Patient continues with Ativan taper tolerating well. Skin intact warm and dry to touch and patient still noted with +2 pitting edema bilateral hands and feet. Patient last BS was 223mg/dl and patient received 4 unit of regular insulin. Patient received PRN Toradol IM for pain from primary nurse and it was effective per nurse. Last CIWA score was 12 @1600. All needs are attended. Pt endorsed to night nurse in stable condition. Pt is stable at this time, night nurse will continue to monitor.
[2018-02-27 20:00] VITALS: BP 145/85
--- NOTE | 2018-02-27 20:00 | NUR ---
Start of Shift Patient in room, asleep, AAOx4. Patient noted to be anxious and with c/o back pain, with pain level=3/10. With PRN Toradol. Pt noted to have gross tremors, is unkempt, odorous, with flushed skin and is melancholic. Pt observed to be easily startled and irritated. Fall, universal, seizure and safety prec in place. Call light within reach. Latest CIWA=15. Will continue to monitor.
[2018-02-27] MEDS: MIRTAZAPINE 15 MG TABLET PO SCH (21:28)
[2018-02-27] MEDS: ATORVASTATIN 40 MG TABLET PO SCH (21:28)
--- NOTE | 2018-02-27 21:30 | NUR ---
RN note PRN Toradol Pt c/o back pain=05/14. Noted with facial grimacing and moaning upon movement. Administered Toradol 30 mg IM PRN as ordered. Will reassess.
--- NOTE | 2018-02-27 22:30 | NUR ---
RN note reassess Patient verbalized that pain level=3/10.
[2018-02-28] VITALS: BP 138/84
[2018-02-28 04:00] VITALS: BP 133/81
--- NOTE | 2018-02-28 07:20 | NUR ---
Start of Shift Note Pt. is 62 y/o male admitted for the medically managed withdrawal from ETOH. Pt. placed on a 5 day Ativan taper to help managed his withdrawal symptoms. Pt. has medical Hx of DM type 2, HTN, Seizures, and other co-morbidities. Last Accu-check at 2100 was 222. Last CIWA of 12. Pt. given PRN Toradol IM 30mg given for back pain during previous shift. Received pt. in room. Pt. in bed with eyes closed, with no signs of S.O.B. noted. Pt. arousable to name and touch but just goes right back to sleep. Pt. presents with facial flushing and is malodorous. Pt.s room is cluttered with his belongings. Will encourage pt. to maintain a hygienic person and personal space. Safety measures in place. Will continue to monitor pt. for safety .
--- NOTE | 2018-02-28 07:32 | NUR ---
End of Shift Patient asleep on bed but arousable, continues to c/o back pain, with PRN IM Toradol ordered. Pt also continues to have gross tremors, is unkempt, odorous and melancholic. Pt still with flushed skin, with edema +2 on both hands and feet. Fall, universal, seizure and safety prec in place. Call light within reach. Latest CIWA=12, slept for 7 hours. Endorsed to AM shift nurse for continuity of care.
[2018-02-28 08:00] VITALS: BP 144/88
[2018-02-28] MEDS: CITALOPRAM 20 MG TABLET PO SCH (08:22)
[2018-02-28] MEDS: THIAMINE HCL 100 MG TABLET PO SCH (08:22)
[2018-02-28] MEDS: METOPROLOL TARTRATE 50 MG TABLET PO SCH ×2 (08:25→20:58)
[2018-02-28] MEDS: GABAPENTIN 300 MG CAPSULE PO SCH ×3 (08:25→20:58)
[2018-02-28] MEDS: AMLODIPINE 10 MG TABLET PO SCH (08:25)
[2018-02-28] MEDS: FOLIC ACID 1 MG TABLET PO SCH (08:25)
[2018-02-28] MEDS: ASPIRIN 81 MG TAB.CHEW PO SCH (08:25)
[2018-02-28] MEDS: LISINOPRIL 20 MG TABLET PO SCH (08:25)
[2018-02-28] MEDS: MULTIVITAMINS,THERAPEUTIC TABLET PO SCH (08:25)
[2018-02-28] MEDS: BLOOD SUGAR DIAGNOSTIC 1 EACH STRIP VI SCH ×4 (08:26→21:04)
[2018-02-28] MEDS: LIDOCAINE PATCH 5% TOP SCH (08:26)
[2018-02-28] MEDS: INSULIN REGULAR, HUMAN 300 UNIT/3 ML VIAL SQ PRN ×4 (08:30→21:05)
[2018-02-28] MEDS: KETOROLAC TROMETHAMINE 30 MG INJ IM PRN ×2 (08:38→21:00)
--- NOTE | 2018-02-28 08:38 | NUR ---
PRN Medication Pt. in bed complaining on 05/14 low back pain. Toradol 30mg Im given at this time on his right Deltoid. Will continue to monitor pt. for medication effectiveness and safety.
[2018-02-28] MEDS ORDERED: LORAZEPAM 1 MG TABLET PO SCH (09:00)
--- NOTE | 2018-02-28 09:38 | NUR ---
PRN Re-Assessment Pt. states his pain is now 2/10. Medication effective. Will continue to monitor pt. for safety.
[2018-02-28 12:00] VITALS: BP 134/86
[2018-02-28 16:33] VITALS: BP 109/58
--- NOTE | 2018-02-28 19:05 | NUR ---
Pt. is 62 y/o male admitted for the medically managed withdrawal from ETOH. Pt. placed on a 5 day Ativan taper to help managed his withdrawal which was completed today. Pt. has medical Hx of DM type 2, HTN, Seizures, and other co-morbidities. Last Accu-check at 1700 was 284. Last CIWA of 12. Pt. given PRN Toradol IM 30mg given for back pain during morning med pass. Pt. compliant with medication regiment throughout shift. Pt. presents with flushed facial skin and gross hand tremors with mild anxiety. Pt. withdrawn upon approach, and malodorous. Encouraged pt. to verbalize concerns and emotions. Pt. educated on discharge plan and pt. verbalize understanding. Last CIWA 12 at 1600. Will endorse pt.s care to oncoming shift.
--- NOTE | 2018-02-28 19:30 | NUR ---
Start of Shift Note Received 62 y/o male px, admitted for medically supervised withdrawal from ETOH. Px is to be D/C tomorrow, 03/01/2018. Px completed 5 day Ativan taper. Px tolerated it. Last reported CIWA 12 at 1600 by AM shift nurse. Px has DM type 2. During the rounds at 1930, px is awake on bed in fowlers position. Px appears disheveled and anxious. Both hands and feet are edematous. Px has good eye contact. Bilateral hand tremors are noted. Px stated My anxiety is 8/10. I have LBP of 7/10. Bed on lowest position, side rails up 2x and call light within reach. Well continue to monitor.
[2018-02-28 20:00] VITALS: BP 120/78
[2018-02-28] MEDS: MIRTAZAPINE 15 MG TABLET PO SCH (20:58)
[2018-02-28] MEDS: ATORVASTATIN 40 MG TABLET PO SCH (20:58)
--- NOTE | 2018-02-28 21:00 | NUR ---
PRN Toradol Patient requested for Toradol injection for pain, Toradol 30 mg given IM on left deltoids as PRN medication for LBP of 03/13.
--- NOTE | 2018-02-28 21:05 | NUR ---
BG BG= 260 mg/dl, Humulin R 6 "u" given SQ on right deltoids.
--- NOTE | 2018-02-28 21:30 | NUR ---
Reassessment of pain Px stated that his pain reduced to 5/10 from 7/10 after 30 mins of administration of Toradol 30 mg IM. We'll continue to monitor.
[2018-03-01] VITALS: BP 118/78
[2018-03-01] MEDS: diphenhydrAMINE 50 MG CAPSULE PO PRN (00:39)
--- NOTE | 2018-03-01 00:39 | NUR ---
PRN Benadryl Px asked for pill to help him sleep. Benadryl 50 mg/cap, 1 cap given PO as PRN for insomnia.We'll continue to monitor.
[2018-03-01 04:00] VITALS: BP 120/74
--- NOTE | 2018-03-01 04:00 | NUR ---
CIWA deferred CIWA deferred due to the px is asleep, to assess if the px is awake per doctor's order. We'll continue to monitor.
--- NOTE | 2018-03-01 07:05 | NUR ---
End of Shift Note Px is to be D/C today, 03/01/2018. During the shift at 2100, BG= 260 mg/dl, Humulin R insulin 6 "u" given SQ per sliding scale. At 2100, Toradol 30 mg given IM as PRN med for LBP of 7/10. Pain was reduced to 5/10. At 0039, px received Benadryl 50 mg PO as PRN med for insomnia. Pxs oral intake is 1 L, voided 2x, and without BM. Px slept for 4.5 hours intermittently. At 0630, px is awake on bed in fowlers position. Last CIWA 12. Bed on lowest position, side rails up 2x and call light within reach. Well continue to monitor. Px endorsed to AM shift nurse.
--- NOTE | 2018-03-01 07:25 | NUR ---
Start of Shift Notes: Received patient in his room. Awake, alert and verbally responsive. Oriented x 4. Patient appears flushed, worried with bilateral tremors noted to BUE. Educated patient on the discharge process. Verbalized good understanding. Patient is a 62 year old male admitted for ETOH withdrawal who completed his 5-day Ativan taper as ordered. No adverse reactions noted. Patient will be discharging today. Encouraged patient to shower and to tidy up his room due to empty water bottles on the floor. Patient states that he would shower before leaving. Per night report, patient was given Toradol during the night. Last BS covered at 1999. Last CIWA 12 and slept for 5 hours. Will continue to monitor.
[2018-03-01] MEDS: BLOOD SUGAR DIAGNOSTIC 1 EACH STRIP VI SCH (07:53)
[2018-03-01 08:00] VITALS: BP 135/87
[2018-03-01] MEDS: CITALOPRAM 20 MG TABLET PO SCH (08:05)
[2018-03-01 08:06] VITALS: BP 130/87
[2018-03-01] MEDS: ASPIRIN 81 MG TAB.CHEW PO SCH (08:06)
[2018-03-01] MEDS: AMLODIPINE 10 MG TABLET PO SCH (08:06)
[2018-03-01] MEDS: METOPROLOL TARTRATE 50 MG TABLET PO SCH (08:06)
[2018-03-01] MEDS: THIAMINE HCL 100 MG TABLET PO SCH (08:06)
[2018-03-01] MEDS: LISINOPRIL 20 MG TABLET PO SCH (08:06)
[2018-03-01] MEDS: GABAPENTIN 300 MG CAPSULE PO SCH (08:06)
[2018-03-01] MEDS: FOLIC ACID 1 MG TABLET PO SCH (08:06)
[2018-03-01] MEDS: MULTIVITAMINS,THERAPEUTIC TABLET PO SCH (08:06)
[2018-03-01] MEDS: KETOROLAC TROMETHAMINE 30 MG INJ IM PRN (08:07)
--- NOTE | 2018-03-01 08:07 | NUR ---
Toradol 30 mg IM given: Patient verbalizes "9/10" pain. He is noted with facial grimacing, sweating and rubbing his lower back. Heat packs provided but did not help. On pain management of Lidocaine as ordered. Medicated patient with Toradol 30 mg IM as ordered. Will monitor for effectiveness.
[2018-03-01] MEDS: INSULIN REGULAR, HUMAN 300 UNIT/3 ML VIAL SQ PRN (08:09)
[2018-03-01] MEDS: LIDOCAINE PATCH 5% TOP SCH (08:13)
--- NOTE | 2018-03-01 08:37 | NUR ---
Re-assessment: Toradol Patient verbalizes that PRN Toradol was effective in reducing low back pain. He states that his PL is now 11/11.
--- NOTE | 2018-03-01 09:37 | NUR ---
Discharged: CIWA 10 due to anxiety, sweating, and gross tremors. VS stable. BP stable. On HTN meds. No s/s of hypo/HTN noted. B S AC breakfast 264, covered with 6U of Humulin R as ordered. No s/s of hypo/hyperglycemia noted. Medicated patient with Toradol 30 mg IM as ordered. Discharge education provided regarding his discharge instructions. Patient verbalized good understanding. All necessary dc paperwork were discussed and explained to the patient. Home meds were returned to the patient. Prescription and all necessary dc paper work were placed inside duffel bag. All clothing, medication and valuables were returned to the patient. Escorted off the unit by [employer] and picked up by [employer] to be transported to [facility]. Patient left the unit in stable condition.
== END 2018-03-01 09:37 | disposition other institution (70) | DRG 895 ==
LOC: SRC 16:19
PROVIDERS: ADMIT Internal Medicine; ATTEND Internal Medicine
PROC: HZ2ZZZZ Detoxification Services for Substance Abuse Treatment (ICD-10-PCS; principal; 2018-02-23)
PROC: HZ41ZZZ Group Counseling for Substance Abuse Treatment, Behavioral (ICD-10-PCS; 2018-02-24)
DX: F10.232 Alcohol dependence with withdrawal with perceptual disturbance (principal); F32.0 Major depressive disorder, single episode, mild; E78.5 Hyperlipidemia, unspecified; G47.33 Obstructive sleep apnea (adult) (pediatric); Y90.9 Presence of alcohol in blood, level not specified; K21.9 Gastro-esophageal reflux disease without esophagitis; F41.9 Anxiety disorder, unspecified; F17.210 Nicotine dependence, cigarettes, uncomplicated; Z81.1 Family history of alcohol abuse and dependence; Z80.0 Family history of malignant neoplasm of digestive organs; I25.10 Atherosclerotic heart disease of native coronary artery without angina pectoris; Z95.1 Presence of aortocoronary bypass graft; G89.29 Other chronic pain; G47.00 Insomnia, unspecified; Z79.82 Long term (current) use of aspirin; Z79.899 Other long term (current) drug therapy; Z79.84 Long term (current) use of oral hypoglycemic drugs; I15.9 Secondary hypertension, unspecified; E11.9 Type 2 diabetes mellitus without complications; M54.16 Radiculopathy, lumbar region
CPT/HCPCS: 36415; 70030-TC; 80307; 80346; 83690; 83735; 84443; 85025; 86580; 86592; 86705; 86803; 87340; 87806; G0480; J1815; J1885; J3411; Q0163